=== PATIENT | male | born 1955 | race Caucasian/White ===

== ENCOUNTER 2024-04-13 09:47 | Outpatient (CLI) | payer MEDICARE | END 2024-04-13 09:48 | disposition home or self-care (01) | LOC: CSHWCC 09:47 | PROVIDERS: ATTEND Nurse Practitioner Family | DX: I87.313 Chronic venous hypertension (idiopathic) with ulcer of bilateral lower extremity (principal); L97.212 Non-pressure chronic ulcer of right calf with fat layer exposed; L97.222 Non-pressure chronic ulcer of left calf with fat layer exposed | CPT/HCPCS: 11042 ==

== ENCOUNTER 2024-04-27 10:58 | Outpatient (CLI) | payer MEDICARE | END 2024-04-27 10:59 | disposition home or self-care (01) | LOC: CSHWCC 10:58 | PROVIDERS: ATTEND Nurse Practitioner Family | DX: I87.313 Chronic venous hypertension (idiopathic) with ulcer of bilateral lower extremity (principal); L97.222 Non-pressure chronic ulcer of left calf with fat layer exposed | CPT/HCPCS: 11042 ==

== ENCOUNTER 2024-05-11 14:00 | Outpatient (CLI) | payer MEDICARE | END 2024-05-11 14:01 | disposition home or self-care (01) | LOC: CSHWCC 14:00 | PROVIDERS: ATTEND Nurse Practitioner Family | DX: I87.313 Chronic venous hypertension (idiopathic) with ulcer of bilateral lower extremity (principal); L97.222 Non-pressure chronic ulcer of left calf with fat layer exposed; L97.212 Non-pressure chronic ulcer of right calf with fat layer exposed | CPT/HCPCS: 11042; 99213; G0463 ==

== ENCOUNTER 2024-05-18 08:27 | Outpatient (CLI) | payer MEDICARE | END 2024-05-18 08:28 | disposition home or self-care (01) | LOC: CSHWCC 08:27 | PROVIDERS: ATTEND Nurse Practitioner Family | DX: I87.313 Chronic venous hypertension (idiopathic) with ulcer of bilateral lower extremity (principal); L97.222 Non-pressure chronic ulcer of left calf with fat layer exposed; L97.919 Non-pressure chronic ulcer of unspecified part of right lower leg with unspecified severity | CPT/HCPCS: 11042 ==

== ENCOUNTER 2024-05-25 08:55 | Outpatient (CLI) | payer MEDICARE | END 2024-05-25 08:56 | disposition home or self-care (01) | LOC: CSHWCC 08:55 | PROVIDERS: ATTEND Nurse Practitioner Family | DX: I87.313 Chronic venous hypertension (idiopathic) with ulcer of bilateral lower extremity (principal); L97.222 Non-pressure chronic ulcer of left calf with fat layer exposed | CPT/HCPCS: 99212; G0463 ==